=== PATIENT | male | born 1965 | race American Indian/Alaskan Native ===

== ENCOUNTER 2016-04-17 09:32 | Emergency (ER) | payer SELFPAY ==
--- NOTE | 2016-04-17 14:22 | Emergency Department Report ---
Chief Complaint: Eye Problems Stated Complaint: POSS BLOOD VESSELS BURST IN EYE Time Seen by Provider: 04/17/16 13:44 - HPI History of Present Illness: Patient presents with decrease in vision of left eye. He also admits to itching , redness, pain, drainage. - ROS Review of Systems: All other systems unremarkable except documentation in HPI - Exam Vital Signs: Vital Signs 04/17/16 09:38 Temperature 98.6 F Pulse Rate 89 Respiratory 16 Rate Blood Pressure 159/111 O2 Sat by Pulse 97 Oximetry Physical Exam: General: Male no apparent distress noted, ambulatory. Eye: Left eye sclera is red, upper lid is tender to palpate and mildly swollen. Cardiovascular: Heart sounds present S1-S2, no murmur, gallop, or ectopy noted,. Respiratory: Chest symmetry with respirations, lungs clear to auscultate upper and lower lobes, respirations even and unlabored, no rales, rhonchi, crackles noted. Peripheral Vascular: Radial and pedal pulses are 2/4 bilaterally. Extremities: Warm without clubbing, edema or cyanosis. Neurological: The patient is oriented to person, place and time. Strength and sensation are grossly intact. Face is symmetric. There is no focal deficit. Patient is unable to perform eye exam due to sensitivity to light Psych: AxOx3, answers questions appropriately, mood full range, affect normal, normal speech and tone. MSE screening note: Focused history and physical exam performed. Due to findings the following was ordered: seen by provider and to go to main ED to be seen by physician Dr. Wilson has been notified of patient S/S. Patient discussed with doctor:: MARCO A WILSON ED Medical Decision Making - Medical Decision Making seen by provider, laboratory studies ordered, and to go to main ED to be seen by physician ED Disposition for MSE Condition: Stable
[2016-04-17 14:44] LABS: Mean Corpuscular HGB Conc 32 % (32-34); Platelet Count 244 K/mm3 (140-440); Red Blood Count 6.32 M/mm3 (3.65-5.03); Red Cell Distribution Width 14.7 % (13.2-15.2); White Blood Count 7.2 K/mm3 (4.5-11.0)
[2016-04-17 14:46] LABS: Mean Corpuscular Hemoglobin 22 pg (28-32); Mean Corpuscular Volume 70 fl (84-94)
[2016-04-17 15:08] LABS: Alanine Aminotransferase 50 units/L (7-56); Albumin 4.6 g/dL (3.9-5); Albumin/Globulin Ratio 1.4 %; Alkaline Phosphatase 49 units/L (35-129); Bilirubin,Total 0.2 mg/dL (0.1-1.2); Blood Urea Nitrogen 12 mg/dL (9-20); Calcium 9.1 mg/dL (8.4-10.2); Carbon Dioxide 26 mmol/L (22-30); Glucose 90 mg/dL (75-100); Sodium 139 mmol/L (137-145); Total Protein 7.8 g/dL (6.3-8.2)
[2016-04-17 15:15] LABS: Anion Gap 18 mmol/L
[2016-04-17] MEDS ORDERED: BSS ONE (15:15)
[2016-04-17] MEDS ORDERED: FUL-GLO OP ONE (15:15)
[2016-04-17 15:17] LABS: Basophils % (Manual) 0 % (0.0-1.8); Blastocytes % (Manual) 0 %
[2016-04-17 15:18] LABS: Anisocytosis 1+; Diff Status Complete; Hypochromasia 1+; Large Platelets Few; Microcytosis 1+; Platelet Estimate Cons
[2016-04-17 15:32] VITALS: BP 175/119
--- NOTE | 2016-04-17 16:20 | Emergency Department Report ---
ED Eye Problem HPI - General Chief complaint: Eye Problems Stated complaint: POSS BLOOD VESSELS BURST IN EYE Time Seen by Provider: 04/17/16 13:44 Source: patient Mode of arrival: Ambulatory Limitations: No Limitations - History of Present Illness Initial comments: Patient states that he noted an irritation of his high at about midnight last night. He has some visual blurring. He denies history of hypertension. However his previous diagnosis of hypertension here. He states he does not work around any flying objects or chemicals. He claims he did not get anything inside whatsoever. He denies any injury. He states he's been very careful not to rub it because it is red and irritated. chief complaint: eye pain, eye redness -: hour(s) Onset Description: unknown Location: left eye Place: home If Injury: none Eye Symptoms: burning, redness, pain, decreased vision Severity: moderate Consistency: constant Context: other (some runny nose) Associated Symptoms: other (otherwise denies) Treatments Prior to Arrival: none - Related Data Previous Rx's Medication Instructions Recorded Last Taken Type Metoprolol [Lopressor TAB] 50 mg PO BID #60 tablet 06/27/15 Unknown Rx Prednisone [predniSONE 10 mg 10 mg PO .TAPER #1 tab.ds.pk 06/27/15 Unknown Rx (6-Day Pack, 21 Tabs)] Ciprofloxacin HCl [Ciprofloxacin 500 mg PO Q12H #14 tab 04/17/16 Unknown Rx TAB] HYDROcodone/APAP 5-325 [[place] 1 each PO Q6HR PRN #10 tablet 04/17/16 Unknown Rx 5/325] Ofloxacin [Floxin] 2 drops OS Q2H #1 bottle 04/17/16 Unknown Rx amLODIPine [Norvasc] 5 mg PO DAILY #30 tab 04/17/16 Unknown Rx Allergies Allergy/AdvReac Type Severity Reaction Status Date / Time Penicillins Allergy Swelling Verified 04/17/16 09:38 ED Review of Systems ROS: Stated complaint: POSS BLOOD VESSELS BURST IN EYE Other details as noted in HPI Constitutional: denies: chills, fever Eyes: as per HPI, eye pain. denies: eye discharge, vision change ENT: other (rhinitis). denies: ear pain, throat pain Respiratory: denies: cough, shortness of breath, wheezing Cardiovascular: denies: chest pain, palpitations Endocrine: no symptoms reported Gastrointestinal: denies: abdominal pain, nausea, diarrhea Genitourinary: denies: urgency, dysuria Musculoskeletal: denies: back pain, joint swelling, arthralgia Skin: denies: rash, lesions Neurological: denies: headache, weakness, paresthesias Psychiatric: denies: anxiety, depression Hematological/Lymphatic: denies: easy bleeding, easy bruising ED Past Medical Hx - Past Medical History Hx Congestive Heart Failure: No Hx Diabetes: No Hx GERD: No Hx Asthma: No Hx COPD: No Hx HIV: No - Social History Smoking Status: Current Every Day Smoker Substance Use Type: Alcohol - Medications Home Medications: Home Medications Medication Instructions Recorded Confirmed Last Taken Type Metoprolol [Lopressor TAB] 50 mg PO BID #60 tablet 06/27/15 Unknown Rx Prednisone [predniSONE 10 mg 10 mg PO .TAPER #1 tab.ds.pk 06/27/15 Unknown Rx (6-Day Pack, 21 Tabs)] Ciprofloxacin HCl [Ciprofloxacin 500 mg PO Q12H #14 tab 04/17/16 Unknown Rx TAB] HYDROcodone/APAP 5-325 [[place] 1 each PO Q6HR PRN #10 tablet 04/17/16 Unknown Rx 5/325] Ofloxacin [Floxin] 2 drops OS Q2H #1 bottle 04/17/16 Unknown Rx amLODIPine [Norvasc] 5 mg PO DAILY #30 tab 04/17/16 Unknown Rx ED Physical Exam - General Limitations: No Limitations General appearance: alert, in no apparent distress - Head Head exam: Present: atraumatic, normocephalic - Eye Eye exam: Present: PERRL, EOMI, conjunctival injection, periorbital swelling (1- 2 mm ulcer near visual axis), other (the upper lid shows a punctate pustules ) - ENT ENT exam: Present: mucous membranes moist - Neck Neck exam: Present: normal inspection, other (minimal preauricular node? non- tender) - Respiratory Respiratory exam: Present: normal lung sounds bilaterally. Absent: respiratory distress - Cardiovascular Cardiovascular Exam: Present: regular rate, normal rhythm. Absent: systolic murmur, diastolic murmur, rubs, gallop - GI/Abdominal GI/Abdominal exam: Present: soft, normal bowel sounds. Absent: distended, tenderness, guarding, rebound, rigid - Rectal Rectal exam: Present: deferred - Extremities Exam Extremities exam: Present: normal inspection - Back Exam Back exam: Present: normal inspection - Neurological Exam Neurological exam: Present: alert, oriented X3, CN II-XII intact. Absent: motor sensory deficit - Psychiatric Psychiatric exam: Present: normal affect, normal mood - Skin Skin exam: Present: warm, dry, intact, normal color. Absent: rash ED Course Vital Signs 04/17/16 04/17/16 09:38 15:31 Temperature 98.6 F Pulse Rate 89 76 Respiratory 16 16 Rate Blood Pressure 159/111 Blood Pressure 175/119 [Left] O2 Sat by Pulse 97 100 Oximetry - Reevaluation(s) Reevaluation #1: On fluorescein exam there appears to be a very very superficial and small ulcer of the visual axis probably want to millimeters in size. The anterior chamber is clear and deep. Pupil is reactive and accommodates well. 04/17/16 16:43 Reevaluation #2: The importance of following up with the public safety police tomorrow has been strongly emphasized to the patient. He does not use contact lenses. 04/17/16 16:44 ED Medical Decision Making - Lab Data Result diagrams: 04/17/16 14:36 04/17/16 14:36 Critical care attestation.: If time is entered above; I have spent that time in minutes in the direct care of this critically ill patient, excluding procedure time. ED Disposition Clinical Impression: Corneal ulcer of left eye, Periorbital cellulitis of left eye Meibomian blepharitis Qualifiers: Laterality: left Qualified Code(s): H00.016 - Hordeolum externum left eye, unspecified eyelid Hypertension Qualifiers: Hypertension type: essential hypertension Qualified Code(s): I10 - Essential ( primary) hypertension Disposition: DISCHARGED TO HOME OR SELFCARE Is pt being admited?: No Does the pt Need Aspirin: No Condition: Stable Instructions: Corneal Ulcer (ED), Conjunctivitis (ED), Hypertension (ED) Additional Instructions: It is essential that you follow-up with the public safety police tomorrow a.m. It is essentially used the medication exactly as directed. You've a previously diagnosed with hypertension. Given a prescription for high blood pressure medicine. It is strongly recommended that he take this as well and follow up on your hypertension. Return to the emergency department any acute change or problem. Prescriptions: Ciprofloxacin HCl [Ciprofloxacin TAB] 500 mg PO Q12H #14 tab HYDROcodone/APAP 5-325 [[place] 5/325] 1 each PO Q6HR PRN #10 tablet PRN Reason: Pain Ofloxacin [Floxin] 2 drops OS Q2H #1 bottle amLODIPine [Norvasc] 5 mg PO DAILY #30 tab Referrals: PRIMARY CARE, [Primary Care Provider] - 3-5 Days DEANN WEEKS MD [Staff Physician] - 24 Hours [facility] [Provider Group] - 3-5 Days Time of Disposition: 16:21
== END 2016-04-17 16:40 | disposition home or self-care (01) ==
LOC: ED 09:32
DX: H00.016 Hordeolum externum left eye, unspecified eyelid (principal); H16.002 Unspecified corneal ulcer, left eye; L03.213 Periorbital cellulitis; I10 Essential (primary) hypertension; F17.200 Nicotine dependence, unspecified, uncomplicated; Z88.0 Allergy status to penicillin
CPT/HCPCS: 36415; 80053; 85007; 85025; 99283

== ENCOUNTER 2019-04-01 02:08 | Emergency (ER) | payer SELFPAY ==
--- NOTE | 2019-04-01 05:02 | Emergency Department Report ---
Minor Respiratory - HPI Chief Complaint: Upper Respiratory Infection Stated Complaint: CHEST ON FIRE FROM COUGHING,THINK TONSILS SWOLLEN Time Seen by Provider: 04/01/19 04:53 Duration: 3 Days Pain Location: Throat Severity: moderate Minor Respiratory: Yes Rhinorrhea, Yes Sore Throat, Yes Able to Tolerate Fluids, Yes Sick Contacts (Son had the flu), No Ear Pain, No Cough, No Hemoptysis, No Chest Pain, No Shortness of Breath, No Fever Other History: This is a 53-year-old -[place] male who presents to the emergency room with a sore throat for 3 days. Patient states his son was diagnosed with the flu last week that he started having symptoms 4 days ago. Patient states he is currently taking Goody powders and TheraFlu but no change in sore throat. States when he swallows and feels like he swallowing rocks. He denies fever, chest pain, shortness of breath, wheezing, nausea, vomiting, abdominal pain, or diarrhea. ED Review of Systems ROS: Stated complaint: CHEST ON FIRE FROM COUGHING,THINK TONSILS SWOLLEN Other details as noted in HPI Constitutional: denies: chills, fever ENT: throat pain. denies: ear pain Respiratory: denies: cough, shortness of breath, wheezing Cardiovascular: denies: chest pain, palpitations Gastrointestinal: denies: abdominal pain, nausea, diarrhea Skin: denies: rash, lesions Neurological: denies: headache, weakness, paresthesias Psychiatric: denies: anxiety, depression ED Past Medical Hx - Past Medical History Previous Medical History?: No Hx Congestive Heart Failure: No Hx Diabetes: No Hx GERD: No Hx Asthma: No Hx COPD: No Hx HIV: No - Surgical History Past Surgical History?: No - Social History Smoking Status: Current Every Day Smoker Substance Use Type: Alcohol, Marijuana - Medications Home Medications: Home Medications Medication Instructions Recorded Confirmed Last Taken Type Metoprolol [Lopressor TAB] 50 mg PO BID #60 tablet 06/27/15 Unknown Rx Prednisone [predniSONE 10 mg 10 mg PO .TAPER #1 tab.ds.pk 06/27/15 Unknown Rx (6-Day Pack, 21 Tabs)] Ciprofloxacin HCl [Ciprofloxacin 500 mg PO Q12H #14 tab 04/17/16 Unknown Rx TAB] HYDROcodone/APAP 5-325 [[place] 1 each PO Q6HR PRN #10 tablet 04/17/16 Unknown Rx 5/325] Ofloxacin [Floxin] 2 drops OS Q2H #1 bottle 04/17/16 Unknown Rx amLODIPine 5 mg PO DAILY #30 tab 04/17/16 Unknown Rx Nystas/Diphen/Xyl Visc/Mylanta 15 ml MM Q4H PRN #100 ml 04/01/19 Unknown Rx [Magic Mouthwash] methylPREDNISolone [Medrol 4MG 4 mg PO DAILY #1 tab.ds.pk 04/01/19 Unknown Rx DOSEPAK (21 tabs)] Minor Respiratory Exam - Exam General: Vital signs noted. No distress. Alert and acting appropriately. HEENT: Yes Pharyngeal Erythema (erythematous posterior pharynx, uvula midline without exceed a), Yes Moist Mucous Membranes, Yes Rhinorrhea (mild congestion), No Pharyngeal Exudates, No Conjuctival Injection, No Frontal Tenderness, No Maxillary Tenderness Ear: Neither TM Bulge, Neither TM Erythema, Neither EAC Pain, Neither EAC Discharge Neck: Yes Supple, No Adenopathy Lungs: Yes Good Air Exchange, No Wheezes, No Ronchi, No Stridor, No Cough, No Labored Respirations, No Retractions, No Use of Accessory Muscles, No Other Abnormal Lung Sounds Heart: Yes Regular, No Murmur Abdomen: Yes Normal Bowel Sounds, No Tenderness, No Peritoneal Signs Skin: No Rash, No Edema Neurologic: Alert and oriented, no deficits. Musculoskeletal: Unremarkable. ED Course Vital Signs 04/01/19 02:14 Temperature 98.7 F Pulse Rate 82 Respiratory 18 Rate Blood Pressure 150/98 O2 Sat by Pulse 96 Oximetry ED Medical Decision Making - Lab Data Lab Results 04/01/19 Range/Units 05:03 Group A Strep Rapid Negative (Negative) - Medical Decision Making Patient examined by me and stable. No distress noted. Rapid strep obtained and negative. Vitals stable. Viral pharyngitis. Start Medrol Dosepak and Magic mouthwash. Take Tylenol or ibuprofen for pain. Discussed plan with patient and he agreed with plan to treat outpatient. Discharged home. Return to work tomorrow. Follow up with PCP in 48-72 hours. Critical care attestation.: If time is entered above; I have spent that time in minutes in the direct care of this critically ill patient, excluding procedure time. ED Disposition Clinical Impression: Sore throat (viral) Acute pharyngitis Qualifiers: Pharyngitis/tonsillitis etiology: unspecified etiology Qualified Code(s): J02.9 - Acute pharyngitis, unspecified Disposition: DC-01 TO HOME OR SELFCARE Is pt being admited?: No Condition: Stable Instructions: Pharyngitis (ED) Additional Instructions: Expect symptoms to improve within 3 or 4 days. There is no need for bed rest or isolation. Use Tylenol or ibuprofen for symptoms of sore throat, headache, and fever. Follow up with Primary Care Provider in 48-72 hours. Prescriptions: Nystas/Diphen/Xyl Visc/Mylanta [Magic Mouthwash] 15 ml MM Q4H PRN #100 ml PRN Reason: Sore Throat methylPREDNISolone [Medrol 4MG DOSEPAK (21 tabs)] 4 mg PO DAILY #1 tab.ds.pk Referrals: [facility] [Outside] - 3-5 Days [facility] [Outside] - 3-5 Days [facility] [Outside] - 3-5 Days Forms: Work/School Release Form(ED) Time of Disposition: 06:47
[2019-04-01 06:59] VITALS: BP 144/99
== END 2019-04-01 07:02 | disposition home or self-care (01) ==
LOC: ED 02:08
DX: J02.8 Acute pharyngitis due to other specified organisms (principal); F17.200 Nicotine dependence, unspecified, uncomplicated; F12.10 Cannabis abuse, uncomplicated; Z79.899 Other long term (current) drug therapy; Z88.0 Allergy status to penicillin
CPT/HCPCS: 87116; 87430